=== PATIENT | female | born 1960 | race African-American/Black ===

== ENCOUNTER 2016-11-28 10:18 | Emergency (ER) | payer MEDICARE ==
[2015-07-31 13:05] VITALS: BMI 38.4
[~2016-11-28 10:18] MED LIST: HYDROCODON-ACET15 ML PO; KEFLEX500 MG PO; LISINOPRIL5 MG PO; LITHIUM CARBON300 MG PO; PHENERGAN25 M1 PO
== END 2016-11-28 11:24 | disposition home or self-care (01) ==
LOC: D.ER 10:18
DX: Z76.0 Encounter for issue of repeat prescription (principal); Z76.5 Malingerer [conscious simulation]; F31.9 Bipolar disorder, unspecified; M54.9 Dorsalgia, unspecified; I10 Essential (primary) hypertension; M19.90 Unspecified osteoarthritis, unspecified site

== ENCOUNTER 2016-12-06 09:45 | Emergency (ER) | payer MEDICARE ==
[2015-07-31 13:05] VITALS: BMI 38.4
[2016-12-06 10:46] LABS: BASOPHILS 0.3 % (0.0-2.0); HEMATOCRIT 40.6 % (36.0-48.0); HEMOGLOBIN 13.3 g/dL (12-16); IMMATURE GRANULOCYTES 0.3 % (0-5); LYMPHOCYTES 39.7 % (15-50); MCH 29.9 pg (26.0-34.0); MCHC 32.8 g/dL (31.0-37.0); MCV 91.2 fL (80.0-100.0); MEAN PLATELET VOLUME 8.9 fL (7.4-10.4); MONOCYTES 4.6 % (2-11); NEUTROPHILS 53.1 % (40-80); PLATELET COUNT 293 10x3/uL (130-400); RBC 4.45 10x6/uL (4.00-5.40); RDW 15.4 % (11.5-14.5); WBC 10.8 10x3/uL (4.8-10.8)
[2016-12-06 10:54] LABS: ALBUMIN 3.9 g/dL (3.4-5.0); ALKALINE PHOSPHATASE 104 U/L (46-116); ALT (SGPT) 29 U/L (10-68); BILIRUBIN - TOTAL 0.55 mg/dL (0.2-1.3); CALC OSMOLALITY 282 mosm/kg (275-300); CALCIUM 9.4 mg/dL (8.5-10.1); CARBON DIOXIDE 26.2 mmol/L (21.0-32.0); CHLORIDE - SERUM 108 mmol/L (98-107); CREATININE - SERUM 0.8 mg/dL (0.6-1.3); GLUCOSE 93 mg/dL (74-106); POTASSIUM - SERUM 4.5 mmol/L (3.5-5.1); PROTEIN - SERUM 6.9 g/dL (6.4-8.2); SODIUM 142 mmol/L (136-145); UREA NITROGEN 13 mg/dL (7-18); eGFR NON AFRICAN AMERICAN 79 mL/min (90-120)
== END 2016-12-06 11:44 | disposition home or self-care (01) ==
LOC: D.ER 09:45
PROVIDERS: Family Medicine
DX: Z91.14 Patient's other noncompliance with medication regimen (principal); K64.4 Residual hemorrhoidal skin tags; I10 Essential (primary) hypertension; M54.9 Dorsalgia, unspecified; F31.9 Bipolar disorder, unspecified

== ENCOUNTER 2016-12-13 08:31 | Emergency (ER) | payer MEDICARE ==
[2015-07-31 13:05] VITALS: BMI 38.4
== END 2016-12-13 09:37 | disposition home or self-care (01) ==
LOC: D.ER 08:31
DX: M19.90 Unspecified osteoarthritis, unspecified site (principal); F31.9 Bipolar disorder, unspecified; I10 Essential (primary) hypertension; F17.200 Nicotine dependence, unspecified, uncomplicated

== ENCOUNTER 2016-12-26 06:35 | Emergency (ER) | payer MEDICARE ==
[2015-07-31 13:05] VITALS: BMI 38.4
[2016-12-26 06:57] LABS: BASOPHILS 0.4 % (0.0-2.0); EOSINOPHILS 1.5 % (0-7); HEMATOCRIT 39.7 % (36.0-48.0); HEMOGLOBIN 12.6 g/dL (12-16); IMMATURE GRANULOCYTES 0.2 % (0-5); MCH 29.2 pg (26.0-34.0); MCHC 31.7 g/dL (31.0-37.0); MCV 92.1 fL (80.0-100.0); MEAN PLATELET VOLUME 8.9 fL (7.4-10.4); MONOCYTES 4.1 % (2-11); NEUTROPHILS 52.8 % (40-80); PLATELET COUNT 291 10x3/uL (130-400); RBC 4.31 10x6/uL (4.00-5.40); RDW 15.3 % (11.5-14.5); WBC 13.7 10x3/uL (4.8-10.8)
[2016-12-26 07:10] LABS: ANION GAP 12.2 mmol/L (8-16); CALCIUM 8.8 mg/dL (8.5-10.1); CARBON DIOXIDE 26.5 mmol/L (21.0-32.0); POTASSIUM - SERUM 3.7 mmol/L (3.5-5.1); URIC ACID 6.4 mg/dL (2.6-7.2)
== END 2016-12-26 07:41 | disposition home or self-care (01) ==
LOC: D.ER 06:35
PROVIDERS: Family Medicine
DX: M25.562 Pain in left knee (principal); F31.9 Bipolar disorder, unspecified; I10 Essential (primary) hypertension

== ENCOUNTER 2017-01-12 07:43 | Emergency (ER) | payer MEDICARE ==
[2015-07-31 13:05] VITALS: BMI 38.4
== END 2017-01-12 09:16 | disposition home or self-care (01) ==
LOC: D.ER 07:43
DX: M10.072 Idiopathic gout, left ankle and foot (principal); F31.9 Bipolar disorder, unspecified; I10 Essential (primary) hypertension; F17.200 Nicotine dependence, unspecified, uncomplicated

== ENCOUNTER 2017-01-17 10:19 | Emergency (ER) | payer MEDICARE ==
[2015-07-31 13:05] VITALS: BMI 38.4
== END 2017-01-17 11:43 | disposition home or self-care (01) ==
LOC: D.ER 10:19
DX: M54.12 Radiculopathy, cervical region (principal); M17.0 Bilateral primary osteoarthritis of knee; M25.562 Pain in left knee; M25.561 Pain in right knee; F31.9 Bipolar disorder, unspecified; I10 Essential (primary) hypertension; F17.200 Nicotine dependence, unspecified, uncomplicated

== ENCOUNTER 2017-01-29 07:32 | Emergency (ER) | payer MEDICARE ==
[2015-07-31 13:05] VITALS: BMI 38.4
== END 2017-01-29 09:22 | disposition home or self-care (01) ==
LOC: D.ER 07:32
DX: M10.9 Gout, unspecified (principal); F31.9 Bipolar disorder, unspecified; M17.0 Bilateral primary osteoarthritis of knee; M54.12 Radiculopathy, cervical region; I10 Essential (primary) hypertension

== ENCOUNTER 2017-03-02 16:08 | Emergency (ER) | payer MEDICARE ==
[2015-07-31 13:05] VITALS: BMI 38.4
== END 2017-03-02 17:15 | disposition home or self-care (01) ==
LOC: D.ER 16:08
DX: Z76.0 Encounter for issue of repeat prescription (principal); F31.9 Bipolar disorder, unspecified; M54.12 Radiculopathy, cervical region; I10 Essential (primary) hypertension

== ENCOUNTER 2018-01-30 09:06 | Emergency (ER) | payer MEDICARE ==
[2015-07-31 13:05] VITALS: BMI 38.4
== END 2018-01-30 10:37 | disposition home or self-care (01) ==
LOC: D.ER 09:06
DX: M79.671 Pain in right foot (principal); F17.200 Nicotine dependence, unspecified, uncomplicated

== ENCOUNTER 2018-11-27 05:33 | Emergency (ER) | payer MEDICARE ==
[2015-07-31 13:05] VITALS: Ht 152.4 cm; Wt 94.1 kg
[~2018-11-27] VITALS: Ht 152.4 cm; Wt 94.1 kg
[2018-11-27] MEDS ORDERED: TYLENOL W/CODEI1 TAB PO (05:37)
[2018-11-27] MEDS ORDERED: ADIPEX-P37.5 MG PO (05:37)
[2018-11-27] MEDS ORDERED: STERAPRED DS 1010 MG PO (06:35)
[2018-11-27] MEDS ORDERED: AUGMENTIN 875-11 TAB PO (06:35)
[2018-11-27] MEDS ORDERED: ALBUTEROL2.5 MG/3 M INH (06:35)
[2018-11-27 06:54] VITALS: BP 134/79
== END 2018-11-27 06:55 | disposition home or self-care (01) ==
LOC: D.ER 05:33
DX: J45.901 Unspecified asthma with (acute) exacerbation (principal); J40 Bronchitis, not specified as acute or chronic; F17.200 Nicotine dependence, unspecified, uncomplicated; R05 Cough; R09.89 Other specified symptoms and signs involving the circulatory and respiratory systems; I10 Essential (primary) hypertension

== ENCOUNTER 2019-01-05 09:14 | Emergency (ER) | payer MEDICARE ==
[~2019-01-05] VITALS: Ht 152.4 cm; Wt 86.4 kg
[~2019-01-05 09:14] MED LIST changes: +ADIPEX-P37.5 MG PO; +ALBUTEROL2.5 MG/3 M INH; +AUGMENTIN 875-11 TAB PO; +STERAPRED DS 1010 MG PO; +TYLENOL W/CODEI1 TAB PO
[2019-01-05 09:20] VITALS: Ht 152.4 cm; Wt 86.4 kg
[2019-01-05] MEDS ORDERED: HYDROCODON-ACE1 EAC7 PO (09:36)
[2019-01-05] MEDS ORDERED: ALBUTEROL SULF8.5 GM INH (09:36)
[2019-01-05 09:53] VITALS: BP 124/70
== END 2019-01-05 09:51 | disposition home or self-care (01) ==
LOC: D.ER 09:14
DX: L24.0 Irritant contact dermatitis due to detergents (principal); M19.072 Primary osteoarthritis, left ankle and foot; M19.071 Primary osteoarthritis, right ankle and foot

== ENCOUNTER 2019-01-16 13:50 | Emergency (ER) | payer MEDICARE ==
[~2019-01-16] VITALS: Ht 152.4 cm; Wt 90.5 kg
[~2019-01-16 13:50] MED LIST changes: +ALBUTEROL SULF8.5 GM INH; +HYDROCODON-ACE1 EAC7 PO
[2019-01-16 13:53] VITALS: BP 145/94; Ht 152.4 cm; Wt 90.5 kg
[2019-01-16] MEDS ORDERED: VOLTAREN75 MG PO (17:25)
== END 2019-01-16 17:16 | disposition home or self-care (01) ==
LOC: D.ER 13:50
DX: S89.92XA Unspecified injury of left lower leg, initial encounter (principal); W18.30XA Fall on same level, unspecified, initial encounter; Y93.89 Activity, other specified; Y92.410 Unspecified street and highway as the place of occurrence of the external cause; I10 Essential (primary) hypertension; F17.200 Nicotine dependence, unspecified, uncomplicated

== ENCOUNTER 2019-03-20 09:48 | Emergency (ER) | payer MEDICARE ==
[~2019-03-20] VITALS: Ht 152.4 cm; Wt 86.8 kg
[~2019-03-20 09:48] MED LIST changes: +VOLTAREN75 MG PO
[2019-03-20 10:10] VITALS: BP 157/103; Ht 152.4 cm; Wt 86.8 kg
[2019-03-20] MEDS ORDERED: VIBRAMYCIN 100100 MG PO (10:12)
[2019-03-20 11:19] LABS: BASOPHILS 0.1 % (0-2); EOSINOPHILS 1.3 % (0-7); HEMATOCRIT 36.5 % (36.0-48.0); HEMOGLOBIN 12.2 g/dL (12-16); IMMATURE GRANULOCYTES 0.6 % (0-5); LYMPHOCYTES 40.9 % (15-50); MCH 29.9 pg (26.0-34.0); MCHC 33.4 g/dL (31.0-37.0); MCV 89.5 fL (80.0-100.0); MEAN PLATELET VOLUME 8.3 fL (7.4-10.4); NEUTROPHILS 52.1 % (40-80); PLATELET COUNT 297 10x3/uL (130-400); RBC 4.08 10x6/uL (4.00-5.40); RDW 14.8 % (11.5-14.5); WBC 14.1 10x3/uL (4.8-10.8)
[2019-03-20 11:20] LABS: ALBUMIN 3.4 g/dL (3.4-5.0); ALKALINE PHOSPHATASE 106 U/L (46-116); ALT (SGPT) 53 U/L (10-68); BILIRUBIN - TOTAL 0.36 mg/dL (0.2-1.3); CALC OSMOLALITY 278 mosm/kg (275-300); CALCIUM 8.9 mg/dL (8.5-10.1); CARBON DIOXIDE 27.8 mmol/L (21.0-32.0); CHLORIDE - SERUM 105 mmol/L (98-107); CREATININE - SERUM 0.8 mg/dL (0.6-1.3); GLUCOSE 122 mg/dL (74-106); SODIUM 138 mmol/L (136-145); UREA NITROGEN 19 mg/dL (7-18); eGFR NON AFRICAN AMERICAN 78 mL/min (90-120)
[2019-03-20 11:44] LABS: APPEARANCE CLEAR (CLEAR); BILIRUBIN NEGATIVE (NEGATIVE); COLOR YELLOW (YELLOW); GLUCOSE NEGATIVE (NEGATIVE); KETONE NEGATIVE (NEGATIVE); NITRITE NEGATIVE (NEGATIVE); PROTEIN NEGATIVE (NEGATIVE); SPECIFIC GRAVITY 1.015 (1.005-1.020); UROBILINOGEN NORMAL (NORMAL)
[2019-03-20] MEDS ORDERED: STERAPRED DS 1010 MG PO (12:05)
== END 2019-03-20 12:10 | disposition home or self-care (01) ==
LOC: D.ER 09:48
PROVIDERS: Family Medicine
DX: J45.901 Unspecified asthma with (acute) exacerbation (principal); G89.29 Other chronic pain

== ENCOUNTER 2019-06-07 08:50 | Emergency (ER) | payer MEDICARE ==
[~2019-06-07] VITALS: Ht 152.4 cm; Wt 89.3 kg
[~2019-06-07 08:50] MED LIST changes: +VIBRAMYCIN 100100 MG PO
[2019-06-07 08:53] VITALS: BP 140/93; Ht 152.4 cm; Wt 89.3 kg
== END 2019-06-07 10:04 | disposition left against medical advice (07) ==
LOC: D.ER 08:50
DX: Z76.0 Encounter for issue of repeat prescription (principal)

== ENCOUNTER → 2019-06-07 10:21 | Outpatient (CLI) | payer MEDICARE ==
[2019-06-07 08:53] VITALS: BMI 38.4
== END | disposition home or self-care (01) ==
LOC: D.RAD 10:21
PROVIDERS: ATTEND Physical Medicine & Rehabilitation Pain Medicine
DX: G89.4 Chronic pain syndrome (principal); M51.36 Other intervertebral disc degeneration, lumbar region; M54.2 Cervicalgia; M54.16 Radiculopathy, lumbar region; M47.816 Spondylosis without myelopathy or radiculopathy, lumbar region

== ENCOUNTER 2020-03-14 07:43 | Emergency (ER) | payer MEDICARE ==
[~2020-03-14] VITALS: Ht 152.4 cm; Wt 93.2 kg
[2020-03-14 07:57] VITALS: Ht 152.4 cm; Wt 93.2 kg
[2020-03-14] MEDS ORDERED: NEO-BACIT-POLY3.5 GM RIGHT EYE (08:16)
[2020-03-14] MEDS ORDERED: FEXOFENADINE HC60 MG PO (08:16)
[2020-03-14 08:34] VITALS: BP 141/89
== END 2020-03-14 08:35 | disposition home or self-care (01) ==
LOC: D.ER 07:43
DX: H00.012 Hordeolum externum right lower eyelid (principal); J45.909 Unspecified asthma, uncomplicated; K59.00 Constipation, unspecified; R11.0 Nausea

== ENCOUNTER 2020-04-09 10:36 | Emergency (ER) | payer MEDICARE ==
[~2020-04-09] VITALS: Ht 152.4 cm; Wt 90.9 kg
[~2020-04-09 10:36] MED LIST changes: +FEXOFENADINE HC60 MG PO; +NEO-BACIT-POLY3.5 GM RIGHT EYE
[2020-04-09 10:46] VITALS: BP 139/86; Ht 152.4 cm; Wt 90.9 kg
[2020-04-09] MEDS ORDERED: KEFLEX500 MG PO (11:01)
[2020-04-09] MEDS ORDERED: VISTARIL25 MG PO (11:01)
== END 2020-04-09 11:11 | disposition home or self-care (01) ==
LOC: D.ER 10:36
DX: F41.9 Anxiety disorder, unspecified (principal); H00.19 Chalazion unspecified eye, unspecified eyelid

== ENCOUNTER 2020-04-26 14:36 | Emergency (ER) | payer MEDICARE ==
[~2020-04-26] VITALS: Ht 152.4 cm; Wt 95.5 kg
[~2020-04-26 14:36] MED LIST changes: +VISTARIL25 MG PO
[2020-04-26 14:43] VITALS: BP 152/105; Ht 152.4 cm; Wt 95.5 kg
== END 2020-04-26 16:26 | disposition home or self-care (01) ==
LOC: D.ER 14:36
DX: Z76.0 Encounter for issue of repeat prescription (principal); F41.9 Anxiety disorder, unspecified; L84 Corns and callosities; M79.605 Pain in left leg; M79.604 Pain in right leg

== ENCOUNTER 2020-05-25 20:52 | Emergency (ER) | payer MEDICARE ==
[~2020-05-25] VITALS: Ht 152.4 cm; Wt 97.7 kg
[2020-05-25 20:59] VITALS: BP 152/89; Ht 152.4 cm; Wt 97.7 kg
[2020-05-25] MEDS ORDERED: B/P PILL (21:02)
[2020-05-25 22:15] LABS: BASOPHILS 0.2 % (0-2); EOSINOPHILS 2.2 % (0-7); HEMATOCRIT 38.2 % (36.0-48.0); HEMOGLOBIN 12.4 g/dL (12-16); IMMATURE GRANULOCYTES 0.4 % (0-5); LYMPHOCYTES 37.5 % (15-50); MCH 29.7 pg (26.0-34.0); MCHC 32.5 g/dL (31.0-37.0); MCV 91.6 fL (80.0-100.0); MEAN PLATELET VOLUME 8.3 fL (7.4-10.4); MONOCYTES 5.3 % (2-11); NEUTROPHILS 54.4 % (40-80); PLATELET COUNT 266 10x3/uL (130-400); RBC 4.17 10x6/uL (4.00-5.40); RDW 15.6 % (11.5-14.5); WBC 13.5 10x3/uL (4.8-10.8)
[2020-05-25 22:22] LABS: CALC OSMOLALITY 275 mosm/kg (275-300); CALCIUM 9.1 mg/dL (8.5-10.1); CARBON DIOXIDE 26.8 mmol/L (21.0-32.0); CHLORIDE - SERUM 105 mmol/L (98-107); CREATININE - SERUM 0.8 mg/dL (0.6-1.3); GLUCOSE 97 mg/dL (74-106); POTASSIUM - SERUM 3.7 mmol/L (3.5-5.1); SODIUM 137 mmol/L (136-145); UREA NITROGEN 17 mg/dL (7-18); eGFR NON AFRICAN AMERICAN 78 mL/min (90-120)
[2020-05-25 22:28] LABS: ALBUMIN 4.2 g/dL (3.4-5.0); ALKALINE PHOSPHATASE 105 U/L (30-120); ALT (SGPT) 55 U/L (10-68); BILIRUBIN - TOTAL 0.71 mg/dL (0.2-1.3); PROTEIN - SERUM 7.6 g/dL (6.4-8.2)
[2020-05-25] MEDS ORDERED: CLEOCIN HCL300 MG PO (22:45)
[2020-05-25] MEDS ORDERED: KEFLEX500 MG PO (22:45)
== END 2020-05-25 22:58 | disposition home or self-care (01) ==
LOC: D.ER 20:52
PROVIDERS: Emergency Medicine
DX: L02.512 Cutaneous abscess of left hand (principal); L03.012 Cellulitis of left finger; D72.829 Elevated white blood cell count, unspecified; I10 Essential (primary) hypertension; Z72.0 Tobacco use

== ENCOUNTER 2021-05-24 07:02 | Emergency (ER) | payer MEDICARE ==
[~2021-05-24] VITALS: Ht 152.4 cm; Wt 96.4 kg
[~2021-05-24 07:02] MED LIST changes: +B/P PILL; +CLEOCIN HCL300 MG PO
[2021-05-24 07:10] VITALS: BP 146/91; Ht 152.4 cm; Wt 96.4 kg
[2021-05-24] MEDS ORDERED: ACETAMINOPHEN500 M1 PO (08:04)
[2021-05-24] MEDS ORDERED: CYCLOBENZAPRINE10 MG PO (08:04)
[2021-05-24] MEDS ORDERED: IBUPROFEN800 MG PO (08:04)
== END 2021-05-24 08:40 | disposition home or self-care (01) ==
LOC: D.ER 07:02
DX: M17.0 Bilateral primary osteoarthritis of knee (principal); M79.10 Myalgia, unspecified site; S76.811A Strain of other specified muscles, fascia and tendons at thigh level, right thigh, initial encounter; I10 Essential (primary) hypertension; Z72.0 Tobacco use